=== PATIENT | female | born 1990 ===

== ENCOUNTER 2022-05-27 04:09 | Day surgery (SDC) | payer OTHER ==
[2022-05-22 17:23] VITALS: BMI 26.6
[2022-05-27] MEDS ORDERED: LIDOCAINE HCL 1%, 10 MG/ML (20ML VIAL) ONE (07:26)
[2022-05-27] MEDS ORDERED: BUPIVACAINE HCL/PF 0.5% (5MG/ML) 10 ML VIAL ONE (07:27)
[2022-05-27] MEDS ORDERED: LIDOCAINE HCL 1%, 10 MG/ML (20ML VIAL) INF ONE (08:00)
[2022-05-27] MEDS ORDERED: BUPIVACAINE HCL/PF 0.5% (5MG/ML) 10 ML VIAL IJ ONE (08:00)
[2022-05-27 08:40] VITALS: BP 115/70; PULSE 80; TEMP 98.5
[2022-05-27 08:43] VITALS: RESP 16
== END 2022-05-27 08:57 | disposition home or self-care (01) ==
LOC: JASU-SURG 04:09 → EDBD 04:09 → JASU-SURG 08:57
PROVIDERS: ATTEND Surgery
PROC: 0JBD0ZZ Excision of Right Upper Arm Subcutaneous Tissue and Fascia, Open Approach (ICD-10-PCS; principal; 2022-05-27 07:30)
DX: D17.21 Benign lipomatous neoplasm of skin and subcutaneous tissue of right arm (principal)
CPT/HCPCS: 81025; 88304-TC